=== PATIENT | male | born 1950 | race Caucasian/White ===

== ENCOUNTER 2016-12-09 11:22 | Inpatient (IN) | payer MEDICARE, OTHER ==
[~2016-12-09] VITALS: Ht 182.9 cm; Wt 72.6 kg
--- NOTE | 2016-12-09 11:30 | NUR ---
DR REBOLLEDO AT BEDSIDE FOR EVAL.
--- NOTE | 2016-12-09 11:32 | NUR ---
PT BIB PD TO ER BED 14. HERE FOR MEDICAL EVAL PRIOR TO POSSIBLE PSYCH ADMISSION. PLACED ON 5150 [address] PD[place]. PT IS AAOX1. GOWNED AND PLACED ON MONITOR. STABLE VITALS. AWAITING MD MARCANO.
[2016-12-09 11:40] LABS: BASOPHILS % (AUTO) 0.4 % (0.0-2.0); EOSINOPHILS % (AUTO) 0.1 % (0.0-6.0); HEMATOCRIT 41 % (39-51); HEMOGLOBIN 13.3 g/dL (13.5-17.5); LYMPHOCYTES % (AUTO) 9.5 % (20.0-44.0); MEAN CORPUSCULAR HEMOGLOBIN 29 PG (26.0-33.0); MEAN CORPUSCULAR HGB CONC 33 g/dl (31.0-36.0); MEAN CORPUSCULAR VOLUME 87 fL (80-96); MONOCYTES # (AUTO) 0.5 /CMM (0.1-1.30); MONOCYTES % (AUTO) 5.1 % (2.0-12.0); NEUTROPHILS # (AUTO) 9.2 /CMM (1.8-8.9); NEUTROPHILS % (AUTO) 84.9 % (43.0-81.0); PLATELET COUNT (AUTO) 289 /CMM (150-450); RDW COEFFICIENT OF VARIATION 12.4 (11.5-15.0); RED BLOOD CELL COUNT(AUTO) 4.66 MIL/uL (4.5-6.0); WHITE BLOOD COUNT (AUTO) 10.7 K/uL (4.3-11.0)
[2016-12-09 11:47] LABS: CALCIUM, SERUM 9.4 mg/dL (8.5-10.1); CARBON DIOXIDE 23 mmol/L (21-32); CHLORIDE 98 mmol/L (98-107); CREATININE 1.4 mg/dL (0.6-1.3); GLUCOSE 319 mg/dL (74-106); SODIUM SERUM 132 mmol/L (136-145); UREA NITROGEN, BLOOD 36 mg/dL (7-18)
[2016-12-09 11:52] LABS: ALANINE AMINOTRANSFERASE 33 U/L (12-78); ALBUMIN 3.1 g/dL (3.4-5.0); ALCOHOL, BLOOD < 3 mg/dL (0-0); ALKALINE PHOSPHATASE 122 U/L (46-116); ASPARTATE AMINOTRANSFERASE 34 U/L (15-37); BILIRUBIN,DIRECT 0.2 mg/dL (0.0-0.2); BILIRUBIN,TOTAL 0.8 mg/dL (0.2-1.0); TOTAL PROTEIN, SERUM 7.7 g/dL (6.4-8.2)
[2016-12-09 11:56] LABS: ACETAMINOPHEN 0 ug/ml (10-30); SALICYLATE 1.5 mg/dL (2.8-20.0)
--- NOTE | 2016-12-09 12:10 | NUR ---
DR PUCKETT MADE AWARE OF PT'S BLOOD SUGAR. NO NEW ORDER AT THIS TIME.
--- NOTE | 2016-12-09 12:18 | NUR ---
CALLED NURSING SUP. FOR TELE BED
--- NOTE | 2016-12-09 12:20 | NUR ---
STILL UNABLE TO PROVIDE URINE SAMPLE AT THIS TIME.
[2016-12-09] MEDS ORDERED: IV NS 0.9% 1,000 ML IV ONE (12:30)
--- NOTE | 2016-12-09 12:34 | NUR ---
EPIC PAGED, LIFE SCIENTIST
[2016-12-09] MEDS ORDERED: INSULIN REGULAR, HUMAN 100 UNIT/ML 3 ML VIAL SQ ONE (13:00)
[2016-12-09] MEDS ORDERED: INSULIN REGULAR, HUMAN 100 UNIT/ML 10 ML VIAL ONE (13:08)
--- NOTE | 2016-12-09 13:17 | NUR ---
BLOOD SUGAR RECHECK 260.
--- NOTE | 2016-12-09 13:26 | NUR ---
REPORT GIVEN TO NURSE. AWAITING TRANSFER TO FLOOR.
[2016-12-09] MEDS ORDERED: ACETAMINOPHEN 325 MG TABLET PO PRN (13:30)
[2016-12-09] MEDS ORDERED: SODIUM POLYSTYRENE SULFONATE 15 G/60 ML BOTTLE PO ONE (13:30)
[2016-12-09] MEDS ORDERED: HYDROCODONE/APAP 5/325MG 1 EACH TABLET PO PRN (13:30)
[2016-12-09] MEDS ORDERED: ONDANSETRON HCL/PF 4 MG/2 ML VIAL IVP PRN (13:30)
[2016-12-09] MEDS ORDERED: MAGNESIUM HYDROXIDE 30 ML UDC PO PRN (13:30)
[2016-12-09] MEDS ORDERED: Z GUARD REMEDY 2 OZ OINT TP PRN (13:30)
[2016-12-09] MEDS ORDERED: MAG HYDROX/AL HYDROX/SIMETH 30 ML UDC PO PRN (13:30)
[2016-12-09] MEDS: BLOOD SUGAR DIAGNOSTIC 1 EACH STRIP IN SCH ×3 (13:30→21:45)
[2016-12-09] MEDS ORDERED: DEXTROSE 50%-WATER 50 ML DISP.SYRIN IV PRN (13:30)
[2016-12-09] MEDS ORDERED: ZOLPIDEM TARTRATE 5 MG TABLET PO PRN (13:30)
[2016-12-09 16:00] VITALS: BP 100/60
[2016-12-09] MEDS: ENOXAPARIN SODIUM 40 MG/0.4 ML DISP.SYRIN SQ SCH ×2 (18:08→18:49)
--- NOTE | 2016-12-09 18:49 | NUR ---
RN note Patient refused Lovenox injection x2 will endorsed to pm [facility] for continued monitoring patient has ambulated to the bathroom with minimal assistance. PT 20G RIGHT AC. pt stable vitals stable patient is a/o x1 to self . pt answers questions to the best of his Ability however seems confused, witnessed mumbling to self on multiple occasions. no sob or difficulty breathing noted . pt does have a slight cough without mucous noted. lung sound wheezing present . pt stable at this time needs meet , rn will endorse to pm shift Addendum: 12/09/16 at 1901 by CHARLY EVERETT RN rn start of care and end of shift report note
--- NOTE | 2016-12-09 19:30 | NUR ---
GRADUATE STUDIES DEAN NOTE RECEIVED PATIENT ASLEEP IN BED. EASILY AROUSABLE BY NAME. ALERT AND ORIENTED TO NAME ONLY. PATIENT IS CONFUSED. RECEIVING 2L OXYGEN VIA NASAL CANNULA. NO RESPIRATORY DISTRESS OR SOB NOTED. NO S/S OF PAIN OR DISCOMFORT. IV SITE INTACT, WITH FLUIDS RUNNING ORDERED. BED LOCKED AND IN LOWEST POSITION. SIDE RAILS UP, CALL LIGHT WITHIN REACH. WILL CONTINUE TO MONITOR.
[2016-12-09 20:00] VITALS: BP 92/54
[2016-12-09] MEDS: INSULIN REGULAR, HUMAN 100 UNIT/ML 3 ML VIAL SQ PRN (21:55)
[2016-12-09 22:00] VITALS: BP 92/54
[2016-12-10] VITALS: BP_SYST 100; BP_SYST 92; BP_DIAS 41; BP_DIAS 65
[2016-12-10] MEDS: BLOOD SUGAR DIAGNOSTIC 1 EACH STRIP IN SCH ×8 (00:41→21:52)
[2016-12-10] MEDS: INSULIN REGULAR, HUMAN 100 UNIT/ML 3 ML VIAL SQ PRN ×2 (00:51→21:54)
[2016-12-10 06:33] LABS: APPEARANCE,URINE CLEAR (CLEAR); BILIRUBIN,URINE NEGATIVE (NEGATIVE); BLOOD, URINE NEGATIVE Ery/uL (NEGATIVE); COLOR,URINE YELLOW (YELLOW); KETONES,URINE NEGATIVE (NEGATIVE); LEUKOCYTE ESTERASE ,URINE NEGATIVE (NEGATIVE); NITRITE, URINE NEGATIVE (NEGATIVE); PROTEIN,URINE NEGATIVE (NEGATIVE); UGLUCOSE TRACE mg/dL (NEGATIVE); UROBILINOGEN,URINE 0.2 EU/dL (0.2)
[2016-12-10 06:50] LABS: BACTERIA,URINE None seen /HPF (None Seen); RBC,URINE NONE SEEN /HPF (0-2); SQUAMOUS EPITHELIAL CELL,UR Few /HPF (None Seen); WBC,URINE 0-2 /HPF (0-3)
[2016-12-10 07:31] LABS: EOSINOPHIL,URINE None Seen
--- NOTE | 2016-12-10 07:31 | NUR ---
LOW PRESSURE BOILER OPERATOR OPENING NOTE PATIENT IS ALERT AND ORIENTED x1-2. NO PAIN AT THIS TIME. NO SOB OR DISTRESS NOTED. CALL LIGHT WITHIN REACH. SAFETY MEASURES IMPLEMENTED. ON 5150 HOLD. SITTER AT BEDSIDE. IV INTACT AND PATENT NO REDNESS OR SWELLING NOTED. SPEECH IS MUMBLED. REFUSES TO HAVE IV FLUIDS RUNNING, EXPLAINED RISKS AND BENEFITS, PATIENT STILL REFUSED. WILL CONTINUE TO MONITOR
[2016-12-10 08:00] VITALS: BP 133/68
[2016-12-10] MEDS: PANTOPRAZOLE 40 MG TABLET.DR PO SCH (08:05)
--- NOTE | 2016-12-10 09:10 | NUR ---
RN NOTE PATIENT REFUSING TO HAVE ACCUCHECK DONE. PATIENT STATED "I AM REFUSING, NOPE I DON'T WANT IT". EXPLAINED RISKS AND BENEFITS, PATIENT STILL REFUSED.
[2016-12-10 16:00] VITALS: BP 123/78
[2016-12-10 16:31] LABS: CALCIUM, SERUM 8.3 mg/dL (8.5-10.1); CREATININE 1.1 mg/dL (0.6-1.3); POTASSIUM 4.5 mmol/L (3.5-5.1)
[2016-12-10 17:06] LABS: MAGNESIUM 1.6 mg/dL (1.8-2.4)
[2016-12-10 17:33] LABS: CREATININE, URINE 71.6 MG/DL (30.0-125.0); URINE TOTAL PROTEIN 15.7 mg/dL (0-11.9)
--- NOTE | 2016-12-10 18:25 | NUR ---
POWDER LOADER CLOSING NOTE PATIENT IS ALERT AND ORIENTED x10-2. CONFUSED. SITTER AT BEDSIDE. NO PAIN AT THIS TIME. NO SOB OR DISTRESS NOTED. CALL LIGHT WITHIN REACH AT ALL TIMES. SAFETY MEASURES IMPLEMENTED. ABLE TO COMMUNICATE NEEDS. IV INTACT AND PATENT NO REDNESS OR SWELLING NOTED. REFUSED ACCUCHECKS EXPLAINED RISKS AND BENEFITS, STILL REFUSED. MADE MD AWARE. WILL ENDORSE TO SALESPERSON WIGS NURSE
[2016-12-10 20:00] VITALS: BP 128/80
--- NOTE | 2016-12-10 20:00 | NUR ---
RN NOTES PATIENT IN BED AWAKE, ALERT BUT VERY CONFUSED. NO PHYSICAL MANIFESTATION OF PAIN OR DISCOMFORT. O2 AT 2LITERS VIA NASAL CANNULA WELL TOLERATED. NO DISTRESS NOTED. BREATHING EVEN AND UNLABORED. KEPT CLEAN AND DRY. WILL CONTINUE TO MONITOR.
[2016-12-10] MEDS: IV NS 0.9% 1,000 ML IV PRN (22:40)
[2016-12-11] MEDS ORDERED: MAGNESIUM OXIDE 400 MG TABLET ONE ×2 (00:43→00:46)
[2016-12-11] MEDS: MAGNESIUM OXIDE 400 MG TABLET PO SCH ×2 (00:46→21:16)
[2016-12-11] MEDS: BLOOD SUGAR DIAGNOSTIC 1 EACH STRIP IN SCH ×6 (01:45→21:00)
[2016-12-11 02:13] VITALS: BP 139/86
[2016-12-11] MEDS: INSULIN REGULAR, HUMAN 100 UNIT/ML 3 ML VIAL SQ PRN ×3 (04:44→17:31)
--- NOTE | 2016-12-11 06:35 | NUR ---
RN CLOSING NOTES: PATIENT IN BED, AWAKE WATCHING TV. NO EPISODE OF DISTRESS. NO COMPLAINT OF PAIN. REFUSED AM BLOOD DRAW. VITAL WNL. WILL ENDORSE TO AM SHIFT FOR CONTINUITY OF CARE.
--- NOTE | 2016-12-11 07:27 | NUR ---
RN NOTES PT RESTING COMFORTABLY IN BED A/OX3 WITH PERIODS OF CONFUSION. SATING WELL ON 2L NASAL CANNULA. RIGHT AC 20G IV SITE DRY AND INTACT NS RUNNING AT 75CC/HR. SR ON TELE MONITOR IN THE 80S. SIDE RAILS UP X3, CALL LIGHT WITHIN REACH, BED LOCKED AND IN LOWEST POSITION. PT AGREED TO HAVE BLOOD DRAW DONE THIS AM. SITTER AT BEDSIDE FOR SAFETY PRECAUTIONS. WILL CONTINUE TO MONITOR.
[2016-12-11] MEDS: PANTOPRAZOLE 40 MG TABLET.DR PO SCH ×2 (07:30→08:01)
[2016-12-11 07:53] LABS: BASOPHILS % (AUTO) 0.3 % (0.0-2.0); EOSINOPHILS # (AUTO) 0.1 /CMM (0.0-0.7); EOSINOPHILS % (AUTO) 1.4 % (0.0-6.0); HEMATOCRIT 38 % (39-51); HEMOGLOBIN 12.5 g/dL (13.5-17.5); LYMPHOCYTES # (AUTO) 1.2 /CMM (0.8-4.8); LYMPHOCYTES % (AUTO) 14.4 % (20.0-44.0); MEAN CORPUSCULAR HEMOGLOBIN 29 PG (26.0-33.0); MEAN CORPUSCULAR HGB CONC 33 g/dl (31.0-36.0); MEAN CORPUSCULAR VOLUME 89 fL (80-96); MONOCYTES # (AUTO) 0.6 /CMM (0.1-1.30); MONOCYTES % (AUTO) 7.3 % (2.0-12.0); NEUTROPHILS # (AUTO) 6.3 /CMM (1.8-8.9); NEUTROPHILS % (AUTO) 76.6 % (43.0-81.0); PLATELET COUNT (AUTO) 209 /CMM (150-450); RDW COEFFICIENT OF VARIATION 13.2 (11.5-15.0); RED BLOOD CELL COUNT(AUTO) 4.29 MIL/uL (4.5-6.0); WHITE BLOOD COUNT (AUTO) 8.2 K/uL (4.3-11.0)
[2016-12-11 07:57] LABS: CALCIUM, SERUM 8.2 mg/dL (8.5-10.1); CREATININE 0.9 mg/dL (0.6-1.3); MAGNESIUM 1.5 mg/dL (1.8-2.4); POTASSIUM 4.2 mmol/L (3.5-5.1)
[2016-12-11 08:00] VITALS: BP 115/71
[2016-12-11 12:00] VITALS: BP 121/78
[2016-12-11 16:00] VITALS: BP 122/83
[2016-12-11] MEDS ORDERED: QUETIAPINE FUMARATE 25 MG TABLET PO PRN (17:30)
--- NOTE | 2016-12-11 18:00 | NUR ---
RN NOTES PT RESTING COMFORTABLY IN BED WITH SITTER AT BEDSIDE. NO SIGNIFICANT CHANGES THROUGHOUT THE SHIFT. DR CAGE NOTIFIED ABOUT MAG LEVEL 1.5, NO NEW ORDERS GIVEN. SIDE RAILS UP X3 , BED LOCKED AND IN LOWEST POSITION, CALL LIGHT WITHIN REACH.
--- NOTE | 2016-12-11 19:00 | NUR ---
MS RN NOTES PT RECEIVED IN BED, NO S/S OF RESPIRATORY DISTRESS OR SOB. SAFE ENVIRONMENT PROVIDED FREE OF CLUTTERS. BED IN LOCKED, LOW POSITION. CALL LIGHT WITHIN EASY REACH. WILL CONTINUE TO MONITOR PT.
[2016-12-11 20:00] VITALS: BP 105/65
--- NOTE | 2016-12-11 21:29 | NUR ---
ACCUCHECK DUE AT 2100 REFUSED BY THE PATIENT DESPITE RISKS AND BENEFITS OFFERED 3 TIMES STILL REFUSED Jessica DIAS AWARE Addendum: 12/11/16 at 2236 by CARLOS JAY RN HEALTH EDUCATION PROVIDED ABOUT REFUSAL OF ACCUCHECK
[2016-12-11] MEDS ORDERED: QUETIAPINE FUMARATE 25 MG TABLET PO SCH (22:00)
[2016-12-12] VITALS: BP 133/83
[2016-12-12] MEDS: BLOOD SUGAR DIAGNOSTIC 1 EACH STRIP IN SCH ×5 (01:00→17:00)
--- NOTE | 2016-12-12 01:54 | NUR ---
ACCUCHECK DUE AT 0100 AM REFUSED BY THE PATIENT DESPITE RISKS AND BENEFITS PER PATIENT "I DONT WANT IT" PATIENT IS VERY ANGRY, OFFERED 5 TIMES STILL REFUSED M.D PURE PAK MACHINE OPERATOR MADE AWARE AGAIN HEALTH EDUCATION PROVIDED ABOUT REFUSAL OF ACCUCHECK NEED FURTHER INSTRUCTIONS PATIENT BEING UNCOOPERATIVE WITH HIS PLAN OF CARE
--- NOTE | 2016-12-12 02:23 | NUR ---
MACHINE PECAN PICKER NOTES PATIENT NOW IS NON COOPERATIVE HIS PLAN OF CARE, PATIENT SPEECH IS MUMBLED. PATIENT HAS 1:1 SITTER, PATIENT REFUSES ACCUCHECK, REFUSES TO HAVE IV FLUIDS RUNNING, EXPLAINED RISKS AND BENEFITS, PATIENT STILL REFUSED. WILL CONTINUE TO MONITOR
[2016-12-12 04:00] VITALS: BP 133/82
[2016-12-12] MEDS: IV NS 0.9% 1,000 ML IV PRN (04:06)
[2016-12-12] MEDS: INSULIN REGULAR, HUMAN 100 UNIT/ML 3 ML VIAL SQ PRN ×2 (04:19→11:36)
--- NOTE | 2016-12-12 04:44 | NUR ---
PATIENT NOW AGRESS TO TAKE HIS BLOOD SUGAR 222MG/DL PROTOCOL INITIATED
--- NOTE | 2016-12-12 06:24 | NUR ---
ENTRY LEVEL JAVA DEVELOPER CLOSING NOTES PATIENT COMFORTABLY ASLEEP AND EASILY AWAKEN, HEAD OF BED ELEVATED FOR BETTER LUNG EXPANSION, PATIENT CONFUSED ALERT 1-2, ON 2LPM VIA NC 02 SAT 93% IV SITE NO S/S OF INFILTRATED, NOT IN PAIN VERBALIZED BY THE PATIENT, PATIENT NOT IN TOUCH WITH HIS REALITY, BELIEVES HIS A SWIMMER, REORIENTATON WAS DONE, RESPIRATIONS EVEN AND UNLABORED. NS RUNNING NOW AT 75 CC/HR TOLERATED WELL , NO S/S OF ACUTE DISTRESS, AFEBRILE, NEEDS ATTENDED AND ANTICIPATED, KEPT CLEAN AND DRY AND COMFORTABLE, GOOD SKIN CARE PROVIDED. FREQUENT VISUAL CHECK DONE FOR SAFETY EVERY 2 HOURS. SAFE HAZARD FREE ENVIRONMENT PROVIDED. CALL LIGHT WITHIN EASY TO REACH, ON LOW BED AT ALL TIMES TO ENSURE SAFETY, WILL ENDORSE TO THE NEXT SHIFT CONTINUE PLAN OF CARE, PATIENT NOT COOPERATIVE WITH HIS PLAN OF CARE. ATTACH TO TELE MONITOR [address] Addendum: 12/12/16 at 0635 by CARLOS JAY RN Jessica MICHEL AWARE OF THE TELE READINGS
--- NOTE | 2016-12-12 07:00 | NUR ---
RN NOTES RECEIVED PT ON BED , A/Ox3 , SITTING UP ON THE EDGE OF THE BED , RESPIRATION EVEN AND UNLABORED, ON TELE SR , DENIES ANY DISTRESS , CALL LIGHT WITHIN EASY REACH, PT IN LOCKED AND LOWEST POSITION , CONTINUE TO MONITOR PT CLOSELY AND NOTIFY MD FOR ANY SIGNIFICANT CHANGES.
[2016-12-12 08:00] VITALS: BP 134/82
[2016-12-12] MEDS: PANTOPRAZOLE 40 MG TABLET.DR PO SCH (08:06)
--- NOTE | 2016-12-12 12:00 | NUR ---
RN NOTES PT REFUSED TO HAVE IVF AND IV SITE , R AC IV SITE D/BEENA, YULISSA WOOL WASHER NOTIFIED . NO NEW ORDER GIVEN .
[2016-12-12 16:00] VITALS: BP 125/85
[2016-12-12] MEDS ORDERED: MAGNESIUM OXIDE 400 MG TABLET PO ONE (16:30)
--- NOTE | 2016-12-12 16:34 | NUR ---
RN NOTES YULISSA WOUND TREATMENT RN NOTIFIED REGARDING Mg=1.5 ON 12/11 . NEW ODER GIVEN , PT REFUSE TO TAKE MG OXIDE PO,EDUCATED PT HOW IMPORTANT IT IS TO TAKE MENSIUM, PT STILL REFUSING TO TAKE IT.
--- NOTE | 2016-12-12 17:00 | NUR ---
RN NOTES O2 SAT ON RA - , REFUSING TO HAVE O2 ON AT TIMES , O2 SAT 94% ON 2L O2 , ENCOURAGED PT HAVE O2 ON AT ALL TIMES ,
--- NOTE | 2016-12-12 17:30 | NUR ---
RN NOTES REPORT GIVEN TO [facility] , PT STABLE , CONTINUE TO MONITOR .
--- NOTE | 2016-12-12 17:39 | NUR ---
RN NOTES PT DISCHARGE TO [facility], IN STABLE CONDITION .
[2016-12-12] MEDS ORDERED: BLOO-668 INJ (20:18)
[2016-12-12] MEDS ORDERED: regular insulin (20:18)
[2016-12-12] MEDS ORDERED: MAG30ORA PO (20:18)
[2016-12-12] MEDS ORDERED: ACET325T53 PO (20:18)
[2016-12-12] MEDS ORDERED: MAGN400T6 PO (20:18)
[2016-12-12] MEDS ORDERED: QUET25TA PO ×2 (20:18)
[2016-12-12] MEDS ORDERED: MAGN30TA2 PO (20:18)
[2016-12-12] MEDS ORDERED: ZOLP5TAB7 PO (20:18)
[2016-12-12] MEDS ORDERED: HYDR-552 PO (20:18)
[2016-12-12] MEDS ORDERED: PANT40TA4 PO (20:18)
[2016-12-13] MEDS ORDERED: MAGN400T26 PO (07:34)
[2016-12-13] MEDS ORDERED: MAGN400O6 PO (07:34)
[2016-12-13] MEDS ORDERED: INSU100V3 SQ (07:34)
== END 2016-12-12 17:42 | DRG 682 ==
LOC: ER 11:26 → TELE1 12:53
PROVIDERS: ADMIT Internal Medicine; ATTEND Internal Medicine
DX: N17.0 Acute kidney failure with tubular necrosis (principal); G93.41 Metabolic encephalopathy; E44.1 Mild protein-calorie malnutrition; E87.2 Acidosis; E78.5 Hyperlipidemia, unspecified; E86.1 Hypovolemia; E87.5 Hyperkalemia; K21.9 Gastro-esophageal reflux disease without esophagitis; E11.65 Type 2 diabetes mellitus with hyperglycemia; Z68.21 Body mass index [BMI] 21.0-21.9, adult; F29 Unspecified psychosis not due to a substance or known physiological condition; F20.9 Schizophrenia, unspecified
CPT/HCPCS: 36415; 80048-TC; 80076-TC; 81000-TC; 82550-TC; 82570-TC; 82962-TC; 83735-TC; 84100-TC; 84155-TC; 84300-TC; 85025-TC; 87081-TC; 97001-TC; 97116-TC; 97530-TC; A6402; G0480; J1650; J1815; J7030; Z7610

== ENCOUNTER 2016-12-12 18:53 | Inpatient (IN) | payer MEDICARE, OTHER ==
[~2016-12-12] VITALS: Ht 180.3 cm; Wt 74.4 kg
--- NOTE | 2016-12-12 19:30 | NUR ---
GPS/RN NOTE: PATIENT ADMITTED FROM MED-SURG FLOOR. PATIENT ADMITTED ON 5250 HOLD FOR GD AND DTS. PER HOLD [place] REFUSING TO GO BACK WITH THE NURSES TO HIS FACILITY, REFUSING TO TAKE HIS MEDS. UPON FACE TO FACE, PATIENT WAS NOT IN TOUCH WITH REALITY, BELIEVES HE WORKS FOR THE [employer] AND [place] AND NOT LIVING IN A NURSING FACILITY AND IS UNABLE TO CARE FOR HIMSELF, KEEPS LEAVING THE FACILITY, PUTTING HIMSELF IN DANGER. PATIENT AWAKE, ALERT, X2-3. RESPIRATION EVEN, BREATHING PATTERN NON-LABORED. NO APPARENT DISTRESS NOTED. 02 2L VIA OXYGEN CONCENTRATOR, HAS A 1:1 SITTER FOR SAFETY DUE TO OXYGEN. REFUSED SKIN AND BODY ASSESSMENT. PATIENT IS IRRITABLE, EASILY GETS UPSET, DISORGANIZED, SCREAMS, YELLS WHEN QUESTIONS ARE ASKED, UNCOOPERATIVE IMPULSIVE, PARANOID. REFUSED ACCUCHECKS AND TREATMENT/MEDS. PAGED AND SPOKE TO REFRIGERATION BRAZER/SOLDERER. CALI FOR MED RECONCILIATION. HE SAID TO CONTINUE ACCUCHECKS Q 4 HRS. PATIENT IS UNDER THE PSYCHIATRIC CARE OF DR. LAW. BELONGINGS WRE INVENTORIED AND CHECK FOR CONTRABAND. VALUABLES PUT IN TO SAFE. BED LOCKED AND PLACED ON LOWEST POSITION. WILL CONTINUE TO MONITOR Q 15 MINS. TO MAINTAIN SAFETY.
[2016-12-12] MEDS ORDERED: MAGN400T6 PO (20:18)
[2016-12-12] MEDS ORDERED: regular insulin (20:18)
[2016-12-12] MEDS ORDERED: QUET25TA PO ×2 (20:18)
[2016-12-12] MEDS ORDERED: HYDR-552 PO (20:18)
[2016-12-12] MEDS ORDERED: PANT40TA4 PO (20:18)
[2016-12-12] MEDS ORDERED: ACET325T53 PO (20:18)
[2016-12-12] MEDS ORDERED: ZOLP5TAB7 PO (20:18)
[2016-12-12] MEDS ORDERED: BLOO-668 INJ (20:18)
[2016-12-12] MEDS ORDERED: MAGN30TA2 PO (20:18)
[2016-12-12] MEDS ORDERED: MAG30ORA PO (20:18)
--- NOTE | 2016-12-12 20:35 | NUR ---
GPS/RN NOTE: PAGED DONOR SERVICES COORDINATOR NEGRETTE FOR MED RECON AND ADMITTING ORDERS.
--- NOTE | 2016-12-12 20:54 | NUR ---
GPS/RN NOTE: PATIENT REFUSED ACCUCHECK. WILL TRY LATER.
--- NOTE | 2016-12-12 20:55 | NUR ---
GPS/RN NOTE: PATIENT VERY UNCOOPERATIVE, REFUSED SKIN/BODY ASSESSMENT.
[2016-12-12] MEDS ORDERED: MAGNESIUM HYDROXIDE 30 ML UDC PO PRN (21:00)
[2016-12-12] MEDS ORDERED: MAG HYDROX/AL HYDROX/SIMETH 30 ML UDC PO PRN (21:00)
[2016-12-12] MEDS ORDERED: ACETAMINOPHEN 325 MG TABLET PO PRN (21:00)
[2016-12-12] MEDS ORDERED: LORAZEPAM 0.5 MG TABLET PO PRN (21:00)
--- NOTE | 2016-12-12 21:45 | NUR ---
GPS/RN NOTE: SPOKE TO LILA LEIVA, VERIFIED ACCUCHECK Q 4H, HE SAID THAT, IF THAT'S THE WAY IT WAS ORDERED, THEN IT IS Q 4H.
[2016-12-13] MEDS: BLOOD SUGAR DIAGNOSTIC 1 EACH STRIP IN SCH ×6 (00:21→21:00)
[2016-12-13] MEDS: INSULIN REGULAR, HUMAN 100 UNIT/ML 3 ML VIAL SQ PRN ×3 (00:25→12:23)
--- NOTE | 2016-12-13 00:26 | NUR ---
GPS/RN NOTE: ACCUCHECK 328 MG/DL, 8 UNITS REG. INSULIN SC ADMINISTERED. HAD SANDWICH AND MILK FOR SNACKS
[2016-12-13] MEDS ORDERED: DEXTROSE 50%-WATER 50 ML DISP.SYRIN IV PRN (00:30)
--- NOTE | 2016-12-13 06:19 | NUR ---
GPS/RN NOTE: REMAINS UNCOOPERATIVE WITH TREATMENT. REFUSED ACCUCHECK AT 0500.
--- NOTE | 2016-12-13 06:20 | NUR ---
GPS/RN NOTE: PATIENT REFUSED MRSA SCREEN TO BE DONE
--- NOTE | 2016-12-13 06:21 | NUR ---
GPS/RN NOTE: FAMILY NEEDS TO BE NOTIFIED ABOUT ADMISSION, PATIENT HAS NOT GIVEN ANY FAMILY MEMBER ON HIS MED. RECORD/CHART.
--- NOTE | 2016-12-13 07:30 | NUR ---
RECEIVED PT.ALERT AND ORIENTED X3.VS STABLE.
[2016-12-13] MEDS ORDERED: INSU100V3 SQ (07:34)
[2016-12-13] MEDS ORDERED: MAGN400T26 PO (07:34)
[2016-12-13] MEDS ORDERED: MAGN400O6 PO (07:34)
[2016-12-13 07:50] LABS: BASOPHILS % (AUTO) 0.2 % (0.0-2.0); EOSINOPHILS # (AUTO) 0.2 /CMM (0.0-0.7); EOSINOPHILS % (AUTO) 1.5 % (0.0-6.0); HEMATOCRIT 41 % (39-51); HEMOGLOBIN 13.5 g/dL (13.5-17.5); LYMPHOCYTES # (AUTO) 1.7 /CMM (0.8-4.8); LYMPHOCYTES % (AUTO) 15.9 % (20.0-44.0); MEAN CORPUSCULAR HEMOGLOBIN 30 PG (26.0-33.0); MEAN CORPUSCULAR HGB CONC 33 g/dl (31.0-36.0); MEAN CORPUSCULAR VOLUME 89 fL (80-96); MONOCYTES # (AUTO) 0.7 /CMM (0.1-1.30); MONOCYTES % (AUTO) 6.8 % (2.0-12.0); NEUTROPHILS # (AUTO) 7.9 /CMM (1.8-8.9); NEUTROPHILS % (AUTO) 75.6 % (43.0-81.0); PLATELET COUNT (AUTO) 234 /CMM (150-450); RDW COEFFICIENT OF VARIATION 13.6 (11.5-15.0); RED BLOOD CELL COUNT(AUTO) 4.55 MIL/uL (4.5-6.0); WHITE BLOOD COUNT (AUTO) 10.5 K/uL (4.3-11.0)
[2016-12-13 08:00] VITALS: BP 138/70
[2016-12-13 08:15] LABS: ALBUMIN 2.8 g/dL (3.4-5.0); BILIRUBIN,TOTAL 0.7 mg/dL (0.2-1.0); CALCIUM, SERUM 8.7 mg/dL (8.5-10.1); POTASSIUM 4.5 mmol/L (3.5-5.1); TOTAL PROTEIN, SERUM 7.1 g/dL (6.4-8.2)
--- NOTE | 2016-12-13 11:30 | NUR ---
DR. LAW IN TO SEE PT.
--- NOTE | 2016-12-13 12:30 | NUR ---
DR. CAGE MADE AWARE HOME MEDS NEEDED TO BE RECONCILED.
[2016-12-13] MEDS: DIVALPROEX SODIUM 125 MG CAP.SPRINK PO SCH ×3 (13:00→21:00)
[2016-12-13] MEDS: HALOPERIDOL 5 MG TABLET PO SCH ×3 (13:00→21:00)
--- NOTE | 2016-12-13 14:10 | NUR ---
REFUSED AFTERNOON DEPAKOTE AND HALDOL.
[2016-12-13 16:00] VITALS: BP 114/71
--- NOTE | 2016-12-13 17:00 | NUR ---
REFUSED BLOOD SUGAR CHECK AT THIS TIME.
[2016-12-13 20:00] VITALS: BP 134/81
[2016-12-13] MEDS: BENZTROPINE MESYLATE (1 MG) 1 MG TABLET PO SCH (21:00)
--- NOTE | 2016-12-13 21:47 | NUR ---
RN GPS NOTES AT 2100 PT. REFUSED ALL SCHEDULE MEDS , COGENTIN , DEPAKOTE ,HALODOL , ACCU CHECK , ENCOURAGED FOE MEDS, EXPLAINED RISKS AND BENEFITS PT. STILL REFUSED ,
[2016-12-14] MEDS: BLOOD SUGAR DIAGNOSTIC 1 EACH STRIP IN SCH ×5 (01:00→12:04)
[2016-12-14] MEDS: INSULIN REGULAR, HUMAN 100 UNIT/ML 3 ML VIAL SQ PRN ×3 (06:00→17:37)
--- NOTE | 2016-12-14 06:54 | NUR ---
RN GPS NOTE PT .REMAINED IN STABLE CONDITION RESTING IN HIS BED NO CHANGE IN STATUS, AT BED SITE 1:1 SITTER FOR SAFETY, NO ACUTE DISTRESS NOTED, VITAL SIGNS STABLE O2% 98% BP,115/70 PULSE 89 TEMP 98.0 ATTENDED ALL NEEDS AND ANTICIPATED , DENIES SI/ HI AT THIS TIME, ENDORSE TO NEXT SHIFT NURSE. WILL ENDORSE TO NEXT SHIFT FOR CONTINUITY OF CARE
[2016-12-14 08:00] VITALS: BP 132/77
[2016-12-14] MEDS: BENZTROPINE MESYLATE (1 MG) 1 MG TABLET PO SCH ×2 (08:30→21:00)
[2016-12-14] MEDS: HALOPERIDOL 5 MG TABLET PO SCH ×2 (08:30→21:00)
[2016-12-14] MEDS: DIVALPROEX SODIUM 125 MG CAP.SPRINK PO SCH ×2 (08:30→21:00)
[2016-12-14] MEDS ORDERED: diphenhydrAMINE HCL/ZINC ACET CREAM 28.3 GM TUBE TP PRN (14:30)
[2016-12-14] MEDS ORDERED: MAGNESIUM HYDROXIDE 30 ML UDC PO PRN (14:30)
[2016-12-14] MEDS ORDERED: HYDROCODONE/APAP 5/325MG 1 EACH TABLET PO PRN (14:30)
[2016-12-14] MEDS ORDERED: DEXTROSE 50%-WATER 50 ML DISP.SYRIN IV PRN (14:30)
[2016-12-14] MEDS: BLOOD SUGAR DIAGNOSTIC 1 EACH STRIP VI SCH ×3 (14:30→21:47)
[2016-12-14 16:00] VITALS: BP 136/78
--- NOTE | 2016-12-14 16:12 | NUR ---
ADMINISTERED BENADRYL CREAM MT MD ORDER FOR ITCHING BILATERAL FOREARMS. IRENA UED MONITORING.
[2016-12-14] MEDS: METFORMIN 500 MG TABLET PO SCH (17:00)
--- NOTE | 2016-12-14 17:27 | NUR ---
PATIENT REFUSED 0900, AND 1700 MEDICATION WAS PRESCRIBED, BS TAKEN -156 MG/DL, . PATIENT VIA OXYGEN CONTINUES 2L NC, FOR [id number]. PATIENT TALKING SELF, NEED REDIRECTION. 1:1 SITTER FOR SAFETY, CONTINUED MONITORING.
[2016-12-14 20:00] VITALS: BP 127/73
--- NOTE | 2016-12-15 06:23 | NUR ---
RN GPS NOTE PT.NON COMPLAINT WITH MEDICATIONS ,CARE UNCOOPERATIVE EASILY AGIATED REMAINED IN STABLE CONDITION RESTING IN HIS BED NO CHANGE IN STATUS, AT BED SITE 1:1 SITTER FOR SAFETY, NO ACUTE DISTRESS NOTED, VITAL SIGNS STABLE PT IS ON 02 -2L FOR DESATURATION. ATTENDED ALL NEEDS AND ANTICIPATED , DENIES SI/ HI AT THIS TIME, ENDORSE TO NEXT SHIFT NURSE. WILL ENDORSE TO NEXT SHIFT FOR CONTINUITY OF CARE
--- NOTE | 2016-12-15 06:44 | NUR ---
RN GPS NOTES PT. REFUSED AM LABS , ENCOURAGED FOR LABS AND EXPLAINED RISKS AND BENEFITS ,STILL REFUSED ,,PT. STATUS I DON'T WANTS LABS DRAW I AM OK, WILL CONTINUE TO ENCOURAGED TO COMPLY WITH MD REGIMEN .
[2016-12-15] MEDS: BLOOD SUGAR DIAGNOSTIC 1 EACH STRIP VI SCH ×4 (07:25→22:00)
[2016-12-15] MEDS: INSULIN REGULAR, HUMAN 100 UNIT/ML 3 ML VIAL SQ PRN ×2 (07:26→17:30)
[2016-12-15 08:10] VITALS: BP 100/57
[2016-12-15] MEDS: DIVALPROEX SODIUM 125 MG CAP.SPRINK PO SCH ×2 (08:20→21:00)
[2016-12-15] MEDS: BENZTROPINE MESYLATE (1 MG) 1 MG TABLET PO SCH ×2 (08:20→21:00)
[2016-12-15] MEDS: METFORMIN 500 MG TABLET PO SCH ×2 (08:20→17:00)
[2016-12-15] MEDS: HALOPERIDOL 5 MG TABLET PO SCH ×2 (08:21→21:00)
[2016-12-15] MEDS: MAG HYDROX/AL HYDROX/SIMETH 30 ML UDC PO SCH (08:21)
[2016-12-15] MEDS: PANTOPRAZOLE 40 MG TABLET.DR PO SCH (08:21)
--- NOTE | 2016-12-15 08:21 | NUR ---
PATIENT A/O X1/2, ON OXYGEN 2L FOR DESATURATION, BS-224 MG/DL, PATIENT REFUSED SCHEDULED MEDICATION, OFFERED X3 BUT STILL REFUSED, PATIENT STATE" I NEED ONLY OXYGEN", 1;1 SITTER NEXT TO THE PATIENT FOR SAFETY. CONTINUED MONITORING.
[2016-12-15] MEDS: INSULIN DETEMIR 100 UNIT/ML CARTRIDGE SQ SCH ×2 (09:00→09:54)
--- NOTE | 2016-12-15 09:00 | NUR ---
patient refused Levemir 10 u as prescribed, md Leo notified, continued monitoring.
--- NOTE | 2016-12-15 13:14 | NUR ---
patient in the room a/o x1/2, disorganized thoughts, confused, bs-150 mg/dl, refused coverage to be given, offered x3, but still refused coverage. patient state " I do not need insulin, those medication increasing my blood sugar level ". patient also refused 0900 scheduled medication. continued monitoring.
--- NOTE | 2016-12-15 15:54 | NUR ---
Initial Discharge Plan: Per patient he does not live in a facility. Per chart, patient resides at [facility] ([phone]) [address] [place] [id number]. Sw spoke to Sandra from the facility who stated that patient is on a bed hold and they are expecting him back as he is a fpc patient at the facility. Sw will help form a safe and proper discharge.
[2016-12-15 15:56] VITALS: BP 153/83
[2016-12-15 19:39] VITALS: BP 132/70
--- NOTE | 2016-12-15 22:05 | NUR ---
RN GPS NOTES PT. REFUSED 2100 MEDICATIONS AND 2200 ACCUCHECK. EDUCATED PT. ON IMPORTANCE OF MEDICATION AND MONITORING BLOOD SUGAR. PT. YELLED "JUST LEAVE ME ALONE, I WANT TO SLEEP. GET OUT. I DONT WANT ANY MEDICATIONS AND YOU CANT CHECK MY SUGAR" PT. REMAINS WITH 1:1 SITTER PRESENT AT BEDSIDE. NO APPARENT DISTRESS NOTED. WILL CONTINUE TO MONITOR.
[2016-12-16] MEDS: BLOOD SUGAR DIAGNOSTIC 1 EACH STRIP VI SCH ×5 (07:30→22:01)
--- NOTE | 2016-12-16 07:44 | NUR ---
RPG PROGRAMMER ANALYST RECEIVED PT IN BED AO X2 DENIES ANY PAIN OR DISCOMFORT NO SUISIDAL IDEATION DENIES ANY HALLUCINATION, PT REFUSING MORNING MEDS AND GLUCOSE CHECK KEEPS REMOVING OXYGEN PT HAS 1:1 SITTER AT BEDSIDE WILL CONTINUE TO MONITOR, TEACH PT ABOUT RISKS AND BENEFITS OF MEDS AND RISK FOR NOT TAKING MEDS, PT STILL REFUSED WILL INFORM MD.
[2016-12-16] MEDS: DIVALPROEX SODIUM 125 MG CAP.SPRINK PO SCH ×2 (07:48→21:00)
[2016-12-16] MEDS: METFORMIN 500 MG TABLET PO SCH ×2 (07:48→16:22)
[2016-12-16] MEDS: BENZTROPINE MESYLATE (1 MG) 1 MG TABLET PO SCH (07:48)
[2016-12-16] MEDS: PANTOPRAZOLE 40 MG TABLET.DR PO SCH (07:49)
[2016-12-16] MEDS: MAG HYDROX/AL HYDROX/SIMETH 30 ML UDC PO SCH (07:49)
[2016-12-16] MEDS: HALOPERIDOL 5 MG TABLET PO SCH ×2 (07:49→21:00)
[2016-12-16] MEDS: INSULIN DETEMIR 100 UNIT/ML CARTRIDGE SQ SCH (07:49)
[2016-12-16 08:00] VITALS: BP 171/71
--- NOTE | 2016-12-16 10:48 | NUR ---
WARES SORTER LAB AT BEDSIDE TO DRAW BLOOD PT REFUSED TEACHING DONE REGARDING THE NEED FOR LAB DRAW PT STILL REFUSED. THIS IS SECOND ATTEMPT FROM AM
[2016-12-16 16:00] VITALS: BP 153/91
[2016-12-16 20:22] VITALS: BP 147/81
[2016-12-17 08:00] VITALS: BP 146/85
[2016-12-17] MEDS: INSULIN DETEMIR 100 UNIT/ML CARTRIDGE SQ SCH (09:00)
[2016-12-17] MEDS: METFORMIN 500 MG TABLET PO SCH ×2 (09:00→17:00)
[2016-12-17] MEDS: PANTOPRAZOLE 40 MG TABLET.DR PO SCH (09:00)
[2016-12-17] MEDS: HALOPERIDOL 5 MG TABLET PO SCH ×3 (09:00→21:32)
[2016-12-17] MEDS: BENZTROPINE MESYLATE (1 MG) 1 MG TABLET PO SCH ×2 (09:00→21:32)
[2016-12-17] MEDS: MAG HYDROX/AL HYDROX/SIMETH 30 ML UDC PO SCH (09:00)
[2016-12-17] MEDS: DIVALPROEX SODIUM 125 MG CAP.SPRINK PO SCH ×2 (09:00→21:32)
--- NOTE | 2016-12-17 10:06 | NUR ---
received patient a/o x1/2, confused, anhedonia, depress, need constant redirection, refused medication, accu check, even pt refused o2 -2l via nc, 1:1 sitter next to the bed for safety, continued monitoring.
[2016-12-17] MEDS ORDERED: BENZTROPINE MESYLATE (2MG/2ML) 2 MG/2 ML AMPUL IM PRN (10:30)
[2016-12-17] MEDS: HALOPERIDOL LACTATE INJ 5 MG/ML VIAL IM PRN ×2 (10:36→10:39)
[2016-12-17] MEDS ORDERED: LORAZEPAM INJ 2 MG/ML VIAL IM STA (10:39)
--- NOTE | 2016-12-17 10:46 | NUR ---
patient refused po medication offered x3 still refused, administered Haldol 2.5 mg/ml im, and Ativan 1 mg/ml im left outer gluteal area per refusal po medication, v/s taken bp- 146/85, p-95, call security for help, and two of pneumatic jack operator's, patient tolerated well injection. 1;1 sitter next to the patient for safety. Continued monitoring.
[2016-12-17] MEDS: BLOOD SUGAR DIAGNOSTIC 1 EACH STRIP VI SCH ×3 (13:20→21:33)
[2016-12-17] MEDS: INSULIN REGULAR, HUMAN 100 UNIT/ML 3 ML VIAL SQ PRN ×2 (13:23→18:38)
--- NOTE | 2016-12-17 14:36 | NUR ---
Group Notes: S: Patient stated in group-"I don't have any questions" O: Patient presented in group withdrawn and irritable. Patient did not participate in group discussion. A: Patient remains irritable and withdrawn. Patient did not interact with staff or peers. P: Patient will continue to benefit from group activities and will be encouraged to attend group activities.
[2016-12-17 15:56] VITALS: BP 130/71
--- NOTE | 2016-12-17 19:00 | NUR ---
patient a/o x1/2, isolative, disorganized thoughts, confused, refused 1700 scheduled medication, bs-177 mg/dl, 3 units of coverage given, no acute distress at this time. 1:1 sitter next to the bed for safety, continued monitoring, endorsed oncoming nurse for continuation of care.
--- NOTE | 2016-12-17 19:15 | NUR ---
RN NOTES RECEIVED PATIENT RESTING IN BED WITH SITTER AT BEDSIDE. A/O X2-3. NO SIGNS OF DISTRESS. BREATHING EVEN AND UNLABORED. ON 2LPM O2 VIA NC. PT APPEARS DISHEVELED BUT CURRENTLY CALM AND QUIET. WILL CONTINUE TO MONITOR.
[2016-12-17 20:25] VITALS: BP 129/83
[2016-12-17] MEDS: *INSULIN REGULAR(HUMULIN R)HUM 100 UNIT/ML VIAL SQ PRN (21:34)
--- NOTE | 2016-12-18 06:51 | NUR ---
RN NOTES PATIENT AWAKE SITTING ON BED, WITH SITTER AT BEDSIDE. NO CHANGES IN STATUS. ALL NEEDS ATTENDED TO. WILL ENDORSE TO AM SHIFT FOR CANDIDA.
[2016-12-18] MEDS: BLOOD SUGAR DIAGNOSTIC 1 EACH STRIP VI SCH ×4 (07:44→21:46)
[2016-12-18] MEDS: BENZTROPINE MESYLATE (1 MG) 1 MG TABLET PO SCH ×2 (08:36→21:46)
[2016-12-18] MEDS: HALOPERIDOL 5 MG TABLET PO SCH ×2 (08:36→21:45)
[2016-12-18] MEDS: METFORMIN 500 MG TABLET PO SCH ×2 (08:37→16:22)
[2016-12-18] MEDS: DIVALPROEX SODIUM 125 MG CAP.SPRINK PO SCH ×2 (08:37→21:45)
[2016-12-18] MEDS: PANTOPRAZOLE 40 MG TABLET.DR PO SCH (08:37)
[2016-12-18] MEDS: MAG HYDROX/AL HYDROX/SIMETH 30 ML UDC PO SCH (08:38)
[2016-12-18] MEDS: INSULIN DETEMIR 100 UNIT/ML CARTRIDGE SQ SCH (08:44)
[2016-12-18] MEDS: INSULIN REGULAR, HUMAN 100 UNIT/ML 3 ML VIAL SQ PRN ×3 (08:46→17:29)
[2016-12-18 09:06] VITALS: BP 143/75
--- NOTE | 2016-12-18 12:19 | NUR ---
Benedict spoke to Sandra from [facility] ([phone]) [address] [place] [address], to inform her that patient is not ready to be discharged. Sandra stated that they will hold the bed for him. Benedict will follow-up next week.
[2016-12-18 16:00] VITALS: BP 143/75
[2016-12-18 20:00] VITALS: BP 133/65
[2016-12-19 08:00] VITALS: BP 142/67
[2016-12-19] MEDS: BLOOD SUGAR DIAGNOSTIC 1 EACH STRIP VI SCH ×4 (08:30→22:39)
[2016-12-19] MEDS: HALOPERIDOL 5 MG TABLET PO SCH ×2 (08:33→21:14)
[2016-12-19] MEDS: DIVALPROEX SODIUM 125 MG CAP.SPRINK PO SCH ×2 (08:33→21:14)
[2016-12-19] MEDS: METFORMIN 500 MG TABLET PO SCH ×2 (08:33→16:29)
[2016-12-19] MEDS: BENZTROPINE MESYLATE (1 MG) 1 MG TABLET PO SCH ×2 (08:33→21:14)
[2016-12-19] MEDS: INSULIN DETEMIR 100 UNIT/ML CARTRIDGE SQ SCH (08:35)
[2016-12-19] MEDS: *INSULIN REGULAR(HUMULIN R)HUM 100 UNIT/ML VIAL SQ PRN ×3 (08:36→17:40)
[2016-12-19] MEDS: MAG HYDROX/AL HYDROX/SIMETH 30 ML UDC PO SCH (08:46)
[2016-12-19] MEDS: PANTOPRAZOLE 40 MG TABLET.DR PO SCH (08:46)
[2016-12-19 16:00] VITALS: BP 138/73
[2016-12-19 20:00] VITALS: BP 119/60
--- NOTE | 2016-12-20 00:13 | NUR ---
RN GPS NOTES AT AT 2235 PT. BS 59 , AND PROVIDED SNACKS , RECHECK BS AND BS 203 AND PT. REFUSED TO TAKE INSULIN,PT STATED I AM OK ENCOURAGED PT. STILL REFUSED
--- NOTE | 2016-12-20 06:30 | NUR ---
RN GPS NOTES PATIENT RESTING HIS BED, WITH SITTER AT BEDSIDE. NO CHANGES IN STATUS. ALL NEEDS ATTENDED TO. WILL ENDORSE TO NEXT SHIFT FOR CONTINUITY CARE.
[2016-12-20] MEDS: BLOOD SUGAR DIAGNOSTIC 1 EACH STRIP VI SCH ×4 (07:45→21:53)
[2016-12-20] MEDS: INSULIN DETEMIR 100 UNIT/ML CARTRIDGE SQ SCH ×2 (07:46→16:06)
[2016-12-20] MEDS: *INSULIN REGULAR(HUMULIN R)HUM 100 UNIT/ML VIAL SQ PRN ×2 (07:48→21:50)
[2016-12-20 08:00] VITALS: BP 143/81
[2016-12-20] MEDS: DIVALPROEX SODIUM 125 MG CAP.SPRINK PO SCH ×2 (08:07→21:30)
[2016-12-20] MEDS: HALOPERIDOL 5 MG TABLET PO SCH ×2 (08:07→21:30)
[2016-12-20] MEDS: METFORMIN 500 MG TABLET PO SCH ×2 (08:07→16:06)
[2016-12-20] MEDS: MAG HYDROX/AL HYDROX/SIMETH 30 ML UDC PO SCH (08:07)
[2016-12-20] MEDS: PANTOPRAZOLE 40 MG TABLET.DR PO SCH (08:07)
[2016-12-20] MEDS: BENZTROPINE MESYLATE (1 MG) 1 MG TABLET PO SCH ×2 (08:08→21:30)
[2016-12-20] MEDS: INSULIN REGULAR, HUMAN 100 UNIT/ML 3 ML VIAL SQ PRN (12:06)
--- NOTE | 2016-12-20 12:08 | NUR ---
GPS/RN PER LATONIA SHARP CLARIFICATION: KATHLEEN SQ NEW SCHEDULE TO START TOMORROW IN AM
[2016-12-20 16:07] VITALS: BP 131/70
--- NOTE | 2016-12-20 17:30 | NUR ---
GPS/RN BS 63 PROVIDED SNACKS AND ORANGE JUICE
[2016-12-20 20:00] VITALS: BP 122/55
[2016-12-21 07:09] VITALS: BP 125/73
[2016-12-21] MEDS: INSULIN REGULAR, HUMAN 100 UNIT/ML 3 ML VIAL SQ PRN ×2 (08:03→12:45)
--- NOTE | 2016-12-21 08:03 | NUR ---
[id number]: BLOOD SUGAR IS 178 MG/DL AND GAVE 3 UNITS OF REGULAR INSULIN
[2016-12-21] MEDS: INSULIN DETEMIR 100 UNIT/ML CARTRIDGE SQ SCH ×2 (08:06→16:37)
[2016-12-21] MEDS: BLOOD SUGAR DIAGNOSTIC 1 EACH STRIP VI SCH ×4 (08:08→21:47)
[2016-12-21] MEDS: MAG HYDROX/AL HYDROX/SIMETH 30 ML UDC PO SCH (08:09)
[2016-12-21] MEDS: BENZTROPINE MESYLATE (1 MG) 1 MG TABLET PO SCH ×2 (08:09→21:46)
[2016-12-21] MEDS: DIVALPROEX SODIUM 125 MG CAP.SPRINK PO SCH ×2 (08:10→21:47)
[2016-12-21] MEDS: HALOPERIDOL 5 MG TABLET PO SCH ×2 (08:10→21:46)
[2016-12-21] MEDS: PANTOPRAZOLE 40 MG TABLET.DR PO SCH (08:10)
[2016-12-21] MEDS: METFORMIN 500 MG TABLET PO SCH ×2 (08:10→16:24)
[2016-12-21 08:13] VITALS: BP 139/67
--- NOTE | 2016-12-21 12:45 | NUR ---
[id number]: BLOOD SUGAR IS 222 MG/DL AND GAVE 6 UNITS OF REGULAR INSULIN.
--- NOTE | 2016-12-21 16:22 | NUR ---
[id number]: BLOOD SUGAR IS 113 MG/DL AND NO INSULIN COVERAGE REQUIRED AT THIS TIME.
[2016-12-21 20:13] VITALS: BP 120/58
[2016-12-21] MEDS: TEMAZEPAM 7.5 MG CAPSULE PO PRN (21:46)
[2016-12-22] MEDS: TEMAZEPAM 7.5 MG CAPSULE PO PRN ×2 (00:06→21:40)
[2016-12-22] MEDS: *INSULIN REGULAR(HUMULIN R)HUM 100 UNIT/ML VIAL SQ PRN ×2 (01:47→21:38)
--- NOTE | 2016-12-22 06:17 | NUR ---
PATIENT REFUSED TO TAKE A PICTURE EXPLAIN PATIENT X 3 BENEFITS BUT PATIENT STILL REFUSED TO TAKE A PIC REPORTED TO CHARGE NURSE
[2016-12-22] MEDS: BLOOD SUGAR DIAGNOSTIC 1 EACH STRIP VI SCH ×4 (07:30→21:39)
[2016-12-22 08:00] VITALS: BP 142/84
--- NOTE | 2016-12-22 08:00 | NUR ---
GPS/RN AM SHIFT INITIAL NOTES RECEIVED PA AWAKE SITTING IN BED, WITH SITTER AT BEDSIDE. PT ALERT, PLEASANT TO TALK TO NO S/S OF HYPO OR HYPERGLYCEMIA. DENIES ANY PAIN, NO ACUTE DISTRESS NOTED. AM MEDS TO BE GIVEN. SAFETY MAINTAINED. MONITORING CONTINUED.
[2016-12-22] MEDS: INSULIN REGULAR, HUMAN 100 UNIT/ML 3 ML VIAL SQ PRN ×2 (09:30→12:11)
[2016-12-22] MEDS: INSULIN DETEMIR 100 UNIT/ML CARTRIDGE SQ SCH ×2 (09:31→16:54)
[2016-12-22] MEDS: METFORMIN 500 MG TABLET PO SCH ×2 (09:32→16:50)
[2016-12-22] MEDS: MAG HYDROX/AL HYDROX/SIMETH 30 ML UDC PO SCH (09:32)
[2016-12-22] MEDS: DIVALPROEX SODIUM 125 MG CAP.SPRINK PO SCH ×2 (09:33→21:40)
[2016-12-22] MEDS: HALOPERIDOL 5 MG TABLET PO SCH ×2 (09:33→21:39)
[2016-12-22] MEDS: BENZTROPINE MESYLATE (1 MG) 1 MG TABLET PO SCH ×2 (09:33→21:39)
[2016-12-22] MEDS: PANTOPRAZOLE 40 MG TABLET.DR PO SCH (09:34)
--- NOTE | 2016-12-22 11:21 | NUR ---
GPS/RN EKG RESULT RELAYED RESULT OF STAT EKG TO DR. LAW, NO NEW ORDERS RECEIVED. MONITORING CONTINUED.
--- NOTE | 2016-12-22 14:44 | NUR ---
GPS/RN DIETARY RECOMMENDATION RECEIVED A CALL FROM MILL TENDER SECOND OPERATOR, WITH RECOMMENDATION TO CHANGE DIET FROM CCHO 40 GRAMS TO 60 GRAMS. NOTED AND CARRIED.
--- NOTE | 2016-12-22 15:01 | NUR ---
Sandra from [facility] ([phone]) [address] [place] [address], spoke to patient regarding discharge. Patient has been a [facility] patient at the facility. Patient stated that he liked the food at the hospital and would like to stay. older worker specialist informed patient that he could not stay at the hospital and would be going back to the facility.
--- NOTE | 2016-12-22 15:04 | NUR ---
Benedict spoke to Sandra from [facility] [phone]) [address] [place] [phone], to inform her that patient will be discharged tomorrow 12/23/16. Sandra was agreeable with the discharge plan. Benedict will follow-up tomorrow.
[2016-12-22 16:23] VITALS: BP 131/65
--- NOTE | 2016-12-22 17:30 | NUR ---
GPS/RN AFTERNOON ROUNDS PT IN ACTIVITY ROOM, NO ACUTE CHANGE OF CONDITION OR DISTRESS. MONITORING CONTINUED.
--- NOTE | 2016-12-22 19:19 | NUR ---
GPS/RN AM SHIFT END NOTES ALL NEEDS MET. NO ACUTE CHANGE OF CONDITION NOTED DURING THE SHIFT. PT ENDORSED TO PM NURSE TO CONTINUE CARE. SAFETY MAINTAINED.
[2016-12-22 19:47] VITALS: BP 140/71
[2016-12-23 07:08] LABS: BASOPHILS % (AUTO) 0.1 % (0.0-2.0); EOSINOPHILS # (AUTO) 0.2 /CMM (0.0-0.7); EOSINOPHILS % (AUTO) 2.8 % (0.0-6.0); HEMATOCRIT 38 % (39-51); HEMOGLOBIN 12.6 g/dL (13.5-17.5); LYMPHOCYTES # (AUTO) 0.9 /CMM (0.8-4.8); LYMPHOCYTES % (AUTO) 10.9 % (20.0-44.0); MEAN CORPUSCULAR HEMOGLOBIN 29 PG (26.0-33.0); MEAN CORPUSCULAR HGB CONC 33 g/dl (31.0-36.0); MEAN CORPUSCULAR VOLUME 90 fL (80-96); MONOCYTES # (AUTO) 0.6 /CMM (0.1-1.30); MONOCYTES % (AUTO) 6.8 % (2.0-12.0); NEUTROPHILS # (AUTO) 6.9 /CMM (1.8-8.9); NEUTROPHILS % (AUTO) 79.4 % (43.0-81.0); PLATELET COUNT (AUTO) 214 /CMM (150-450); RED BLOOD CELL COUNT(AUTO) 4.29 MIL/uL (4.5-6.0); WHITE BLOOD COUNT (AUTO) 8.7 K/uL (4.3-11.0)
[2016-12-23 07:33] LABS: ALBUMIN 2.3 g/dL (3.4-5.0); BILIRUBIN,TOTAL 0.5 mg/dL (0.2-1.0); CREATININE 0.7 mg/dL (0.6-1.3); POTASSIUM 4.9 mmol/L (3.5-5.1); TOTAL PROTEIN, SERUM 6.8 g/dL (6.4-8.2)
[2016-12-23 08:00] VITALS: BP 134/76
[2016-12-23] MEDS: BLOOD SUGAR DIAGNOSTIC 1 EACH STRIP VI SCH ×2 (08:02→12:23)
[2016-12-23] MEDS: INSULIN REGULAR, HUMAN 100 UNIT/ML 3 ML VIAL SQ PRN ×2 (08:03→12:25)
[2016-12-23] MEDS: METFORMIN 500 MG TABLET PO SCH (08:32)
[2016-12-23] MEDS: DIVALPROEX SODIUM 125 MG CAP.SPRINK PO SCH (08:32)
[2016-12-23] MEDS: PANTOPRAZOLE 40 MG TABLET.DR PO SCH (08:32)
[2016-12-23] MEDS: BENZTROPINE MESYLATE (1 MG) 1 MG TABLET PO SCH (08:32)
[2016-12-23] MEDS: MAG HYDROX/AL HYDROX/SIMETH 30 ML UDC PO SCH (08:33)
[2016-12-23] MEDS: HALOPERIDOL 5 MG TABLET PO SCH (08:35)
[2016-12-23] MEDS: INSULIN DETEMIR 100 UNIT/ML CARTRIDGE SQ SCH (08:38)
--- NOTE | 2016-12-23 14:24 | NUR ---
RN NOTES DISCHARGE INSTRUCTION GIVEN ON HOME MEDICATION AND FOLLOW UP WITH PRIMARY CARE PHYSICIAN IN 1 WEEK. REPORT GIVEN TO ANNITA CABEZAS. FINAL BODY CHECK DONE WITH PICTURE DOCUMENTATION DONE. BELONGING'S LIST ACCOUNTED WITH NO ITEMS MISSING. LEFT HOSPITAL PER [facility] VIA MED RESPONSE IN STABLE CONDITION, AWAKE, ALERT AND ORIENTED WITH 2 L 02 NASAL CANULA.
--- NOTE | 2016-12-23 15:45 | NUR ---
Discharge Note: Patient was discharged to [facility] ([phone]) [address] [place] [address]. Via [facility]. Patient did not have any family to notify. Patient's mood and affect were appropriate upon discharge. Patient denied suicidal and homicidal ideations. Patient will continue to see his psychiatrist Dr. Leavitt ([phone]) at the facility. Facilitated info to IDT team who are in agreement with discharge arrangement. The multidisciplinary exitcare form was done, printed, signed, and given to the patient.
== END 2016-12-23 14:30 | DRG 885 ==
LOC: GPS 18:53
PROVIDERS: ADMIT Psychiatry & Neurology Psychosomatic Medicine; ATTEND Psychiatry & Neurology Psychosomatic Medicine
DX: F20.9 Schizophrenia, unspecified (principal); G93.41 Metabolic encephalopathy; E44.1 Mild protein-calorie malnutrition; E87.2 Acidosis; N17.9 Acute kidney failure, unspecified; F29 Unspecified psychosis not due to a substance or known physiological condition; G30.9 Alzheimer's disease, unspecified; F02.80 Dementia in other diseases classified elsewhere, unspecified severity, without behavioral disturbance, psychotic disturbance, mood disturbance, and anxiety; F01.50 Vascular dementia, unspecified severity, without behavioral disturbance, psychotic disturbance, mood disturbance, and anxiety; E11.65 Type 2 diabetes mellitus with hyperglycemia; E78.5 Hyperlipidemia, unspecified; E86.0 Dehydration; E87.5 Hyperkalemia; K21.9 Gastro-esophageal reflux disease without esophagitis; Z59.0 Homelessness; Z73.6 Limitation of activities due to disability
CPT/HCPCS: 36415; 80053-TC; 80164-TC; 82962-TC; 85025-TC; J1630; J1815; J2060